=== PATIENT | male | born 1975 | race African-American/Black ===

== ENCOUNTER 2017-01-29 08:57 | Emergency (ER) | payer OTHER ==
[~2017-01-29] VITALS: Ht 182.8 cm; Wt 63.5 kg
[~2017-01-29 08:57] MED LIST: ALLERGY SHOT; CLARITIN10 MG PO; CYCLOBENZAPRINE5 M3 PO; FLONASE ALLERG9.9 ML NAS; MEDROL DOSEPAK4 MG PO; TYLENOL EXTRA500 M2 PO
[2017-01-29 09:43] LABS: BASO % 0.1 % (0.0-1.0); HEMATOCRIT 43.9 % (42.0-52.0); HEMOGLOBIN 13.7 g/dl (14.0-18.0); LYMPH # 0.8 10*3/uL (1.3-4.4); LYMPH % 8.9 % (27.0-41.0); MEAN CELL VOLUME 73.8 fl (80.0-94.0); MEAN CORPUSCULAR HGB CONC 31.2 g/dl (33.0-37.0); MEAN PLATELET VOLUME 9.8 fl (9.6-12.3); MONO # 0.2 10*3/uL (0.1-1.0); MONO % 2.5 % (3.0-9.0); NEUT % 88.4 % (47.0-73.0); PLATELET COUNT AUTOMATED 221 10*3/uL (130-400); RED BLOOD COUNT 5.95 10*6/uL (4.50-5.90); RED CELL DISTRI WIDTH 13.6 % (0-14.5); WHITE BLOOD COUNT 9.1 10*3/uL (4.8-10.8)
[2017-01-29 09:59] LABS: ALBUMIN 3.8 gm/dl (3.1-4.5); ALKALINE PHOSPHATASE 173 U/L (45-117); BUN 18 mg/dl (7-24); CHLORIDE 102 mmol/L (98-107); CREATININE 1.16 mg/dL (0.70-1.30); POTASSIUM 3.7 mmol/L (3.5-5.1); SGOT/AST 60 IU/L (3-35); SGPT/ALT 113 U/L (12-78); SODIUM 137 mmol/L (136-145); TOTAL PROTEIN 7.9 gm/dL (6.4-8.2)
[2017-01-29 10:59] LABS: BILIRUBIN NEGATIVE (NEGATIVE); BLOOD NEGATIVE (NEGATIVE); CLARITY SL CLOUDY (CLEAR); COLOR YELLOW (YELLOW); GLUCOSE NEGATIVE (NEGATIVE); KETONE TRACE (NEGATIVE); LEUKO ESTERASE NEGATIVE (NEGATIVE); NITRITE NEGATIVE (NEGATIVE); SPECIFIC GRAVITY 1.025 (1.005-1.030); UROBILINOGEN 0.2 E.U./dl (0.2-1.0)
[2017-01-29] MEDS ORDERED: Zofran4 MG PO (11:01)
[2017-01-29 11:23] LABS: BACTERIA TRACE
== END 2017-01-29 12:36 | disposition home or self-care (01) ==
LOC: ED 08:57
PROVIDERS: Nurse Practitioner
DX: B34.9 Viral infection, unspecified (principal); R74.8 Abnormal levels of other serum enzymes; K29.70 Gastritis, unspecified, without bleeding; F17.210 Nicotine dependence, cigarettes, uncomplicated; Z91.010 Allergy to peanuts; Z88.8 Allergy status to other drugs, medicaments and biological substances; Z91.018 Allergy to other foods

== ENCOUNTER 2018-10-12 22:38 | Emergency (ER) | payer OTHER ==
[~2018-10-12] VITALS: Wt 63.5 kg
[~2018-10-12 22:38] MED LIST changes: +Zofran4 MG PO
[2018-10-12 23:14] LABS: BILIRUBIN NEGATIVE (NEGATIVE); BLOOD NEGATIVE (NEGATIVE); CLARITY CLEAR (CLEAR); COLOR YELLOW (YELLOW); GLUCOSE NEGATIVE (NEGATIVE); KETONE NEGATIVE (NEGATIVE); LEUKO ESTERASE NEGATIVE (NEGATIVE); NITRITE NEGATIVE (NEGATIVE); UROBILINOGEN 0.2 E.U./dl (0.2-1.0)
[2018-10-12 23:23] LABS: WBC 0-2 wbc/hpf (0-5)
[2018-10-12 23:27] LABS: URINE AMPHETAMINES < 1000 (1000ng/ml); URINE BARBITURATES < 200 (200ng/ml); URINE BENZODIAZEPINES < 200 (200ng/ml); URINE CANNABINOIDS (THC) > 50 (50ng/ml); URINE COCAINE < 300 (300ng/ml); URINE METHADONE < 300 (300ng/ml); URINE OPIATES < 300 (300ng/ml)
[2018-10-12 23:28] LABS: URINE PHENCYCLIDINE < 25 (25ng/ml)
[2018-10-15 09:08] LABS: GONOCOCCUS BY NAA Negative (Negative)
== END 2018-10-12 23:45 | disposition home or self-care (01) ==
LOC: ED 22:38
PROVIDERS: Student in an Organized Health Care Education/Training Program
DX: Z20.2 Contact with and (suspected) exposure to infections with a predominantly sexual mode of transmission (principal); Z91.048 Other nonmedicinal substance allergy status; Z91.018 Allergy to other foods; Z88.8 Allergy status to other drugs, medicaments and biological substances; Z91.010 Allergy to peanuts

== ENCOUNTER → 2020-05-19 | Outpatient (CLI) | payer OTHER | END | disposition home or self-care (01) | LOC: COVID19 13:55 | PROVIDERS: ATTEND Social Worker Clinical | DX: Z20.822 Contact with and (suspected) exposure to COVID-19 (principal) ==

== ENCOUNTER → 2022-11-05 | Outpatient (CLI) | payer OTHER ==
[2022-11-05 17:24] LABS: TOTAL PROTEIN 7.2 gm/dL (6.0-8.0)
[2022-11-06 08:10] LABS: HBSAG Negative (Negative); HEP B CORE AB, IGM Negative (Negative); HEPATITIS C ANTIBODY Non Reactive (Non Reactive)
== END | disposition home or self-care (01) ==
LOC: LAB 16:28
PROVIDERS: ATTEND Family Medicine
DX: R79.89 Other specified abnormal findings of blood chemistry (principal); R53.83 Other fatigue; E78.5 Hyperlipidemia, unspecified

== ENCOUNTER → 2022-11-20 | Outpatient (CLI) | payer OTHER | END | disposition home or self-care (01) | LOC: US 08:00 | PROVIDERS: ATTEND Family Medicine | DX: N32.89 Other specified disorders of bladder (principal) ==

== ENCOUNTER 2024-08-27 12:44 | Emergency (ER) | payer OTHER ==
[~2024-08-27] VITALS: Ht 170.1 cm; Wt 59.0 kg
[2024-08-27] MEDS ORDERED: METHOCARBAMOL 750 MG TAB PO ONE (13:10)
[2024-08-27] MEDS ORDERED: methylPREDNISolone sod succ 125 MG VIAL IM ONE (13:10)
[2024-08-27] MEDS ORDERED: PREDNISONE50 MG PO (13:11)
[2024-08-27] MEDS ORDERED: METHOCARBAMOL500 M1 PO (13:11)
[2024-08-27] MEDS ORDERED: Water, Sterile 10 ML VIAL ONE (13:35)
== END 2024-08-27 15:07 | disposition home or self-care (01) ==
LOC: ED 12:44
DX: S16.1XXA Strain of muscle, fascia and tendon at neck level, initial encounter (principal); M79.601 Pain in right arm; R20.0 Anesthesia of skin; Z91.018 Allergy to other foods; Z91.010 Allergy to peanuts; V89.2XXA Person injured in unspecified motor-vehicle accident, traffic, initial encounter; Y93.I9 Activity, other involving external motion; Y92.89 Other specified places as the place of occurrence of the external cause; Y99.8 Other external cause status

== ENCOUNTER 2025-03-21 12:56 | Emergency (ER) | payer OTHER ==
[~2025-03-21] VITALS: Ht 170.1 cm; Wt 59.0 kg
[~2025-03-21 12:56] MED LIST changes: +METHOCARBAMOL500 M1 PO; +PREDNISONE50 MG PO
[2025-03-21] MEDS ORDERED: Amoxicillin/Clavulanate Pota 875 MG TAB PO ONE (13:40)
[2025-03-21 14:04] LABS: BASO # 0.1 10*3/uL (0.0-0.1); BASO % 0.7 % (0.0-1.0); EOS # 0.1 10*3/uL (0.0-0.4); EOS % 0.7 % (1.0-4.0); MEAN CELL VOLUME 75.5 fl (80.0-94.0); MEAN CORPUSCULAR HGB 23.3 pg (27.0-31.0); MEAN PLATELET VOLUME 9.1 fl (9.6-12.3); MONO # 0.5 10*3/uL (0.1-1.0); MONO % 5.3 % (3.0-9.0); NEUT # 6.6 10*3/uL (2.3-7.9); NEUT % 77.5 % (47.0-73.0); NUCLEATED RED BLOOD CELL 0.0 % (0.0-0.0); NUCLEATED RED BLOOD CELL 0.0 10*3/uL (0.0-0.0); PLATELET COUNT AUTOMATED 300 10*3/uL (130-400); RED CELL DISTRI WIDTH 13.1 % (0-14.5)
[2025-03-21 14:21] LABS: BUN 8 mg/dl (9-23)
[2025-03-21] MEDS ORDERED: AMOX-CLAV 875-1 EACH PO (16:04)
== END 2025-03-21 16:07 | disposition home or self-care (01) ==
LOC: ED 12:56
PROVIDERS: Student in an Organized Health Care Education/Training Program
DX: K02.9 Dental caries, unspecified (principal); R07.89 Other chest pain; Z91.018 Allergy to other foods